=== PATIENT | female | born 1935 | race Caucasian/White ===

== ENCOUNTER 2017-06-18 09:47 | Inpatient (IN) | payer MEDICARE ==
[~2017-06-18] VITALS: Ht 170.2 cm; Wt 86.3 kg
[2017-06-18 09:50] VITALS: BP 226/97; PULSE 80; RESP 16; TEMP 97.7; O2SAT 99
[2017-06-18] MEDS ORDERED: LISI40TA PO (10:00)
[2017-06-18] MEDS ORDERED: ASPI-183 PO (10:00)
[2017-06-18 10:43] LABS: AUTOMATED NEUTROPHIL # 3.6 TH/MM3 (1.8-7.7); BASOPHIL # 0.1 TH/MM3 (0-0.2); EOSINOPHIL # 0.1 TH/MM3 (0-0.4); EOSINOPHIL % 1.3 % (0.0-4.0); HEMATOCRIT 24.8 % (35.0-46.0); LYMPH % 17.3 % (9.0-44.0); LYMPHOCYTE # 0.9 TH/MM3 (1.0-4.8); MEAN CELL VOLUME 76.7 FL (80.0-100.0); MEAN CORPUSCULAR HEMOGLOBIN 24.6 PG (27.0-34.0); MEAN CORPUSCULAR HGB CONC 32.1 % (32.0-36.0); MEAN PLATELET VOLUME 9.6 FL (7.0-11.0); MONO % 9.5 % (0.0-8.0); MONOCYTE # 0.5 TH/MM3 (0-0.9); NEUT % 70.9 % (16.0-70.0); PLATELET COUNT 207 TH/MM3 (150-450); RED BLOOD COUNT 3.24 MIL/MM3 (4.00-5.30); RED CELL DISTRIBUTION WIDTH 15.7 % (11.6-17.2); WHITE BLOOD COUNT 5.2 TH/MM3 (4.0-11.0)
[2017-06-18 10:54] LABS: CHLORIDE 109 MEQ/L (98-107); SODIUM (NA) 141 MEQ/L (136-145)
[2017-06-18 10:58] LABS: CALCIUM 8.1 MG/DL (8.5-10.1)
[2017-06-18 10:59] LABS: ALBUMIN 3.1 GM/DL (3.4-5.0); BICARBONATE 26.5 MEQ/L (21.0-32.0); BLOOD UREA NITROGEN 15 MG/DL (7-18); GLUCOSE,RANDOM 87 MG/DL (74-106)
[2017-06-18 11:02] LABS: ALT (GPT) 10 U/L (10-53); AST (GOT) 9 U/L (15-37); CREATININE 0.66 MG/DL (0.50-1.00); GLOMERULAR FILTRATION RATE 86 ML/MIN (>89)
[2017-06-18 11:03] LABS: TOTAL BILIRUBIN ADULT 0.5 MG/DL (0.2-1.0); TOTAL PROTEIN 6.4 GM/DL (6.4-8.2)
[2017-06-18 11:05] LABS: ALKALINE PHOSPHATASE 55 U/L (45-117)
[2017-06-18 11:13] LABS: BILIRUBIN, URINE NEG (NEG); BLOOD, URINE TRACE (NEG); GLUCOSE,URINE NEG (NEG); KETONE, URINE NEG (NEG); NITRITE,URINE NEG (NEG); URINE COLOR YELLOW (YELLW/STRAW); URINE LEUKOCYTE ESTERASE LARGE (NEG)
[2017-06-18 11:26] LABS: BACTERIA, URINE MANY /hpf; SQUAMOUS EPITHELIAL CELL URINE 0-5 /hpf (0-5); WBC, URINE 100-200 /hpf (0-5); WHITE BLOOD CELL CLUMPS MOD
--- NOTE | 2017-06-18 11:34 | PD ---
HPI Chief Complaint: General Weakness Time Seen by Provider: 10:39 Travel History International Travel<30 days: No Contact w/Intl Traveler<30days: No Traveled to known affect area: No History of Present Illness HPI This 81-year-old female was told to come here by her private physician because of anemia. She is not aware of any history of anemia. She went for blood work last and was called last night that she should the hospital she does have chronic shortness of breath with exertion. She has not noted any blood in her stool. She is on blood pressure meds, cholesterol meds and aspirin. She does have a stent in her heart. She is aware that she has a heart murmur PFS Past Medical History Hx Anticoagulant Therapy: Yes (325 ECOTRIN DAILY) Cardiovascular Problems: Yes (HTN, CHOL, STENT) Diabetes: No Hypertension: Yes ?: Not Past Surgical History Coronary Stent: Yes Hysterectomy: Yes Tonsillectomy: Yes Social History Alcohol Use: No Tobacco Use: No Substance Use: No Allergies-Medications (Allergen,Severity, Reaction): Coded Allergies: No Known Allergies (Unverified , 06/18/17) Reported Meds & Prescriptions Reported Meds & Active Scripts Active Reported Lisinopril 40 Mg Tab 40 Mg PO DAILY Aspirin 325 Mg Tab 325 Mg PO DAILY Review of Systems General / Constitutional: No: Fever, Chills Eyes: No: Diploplia, Blurred Vision HENT: Positive: Lightheadedness, No: Headaches, Vertigo Cardiovascular: No: Chest Pain or Discomfort, Palpitations Respiratory: Positive: Shortness of Breath, No: Cough Gastrointestinal: No: Nausea, Vomiting Genitourinary: No: Urgency Musculoskeletal: No: Myalgias, Arthralgias Skin: No Rash, No Itching Neurologic: No: Weakness Hematologic/Lymphatic: No: Easy Bruising Physical Exam Narrative GENERAL: Well-developed female SKIN: Focused skin assessment warm/dry. HEAD: Atraumatic. Normocephalic. EYES: Pupils equal and round. No scleral icterus. No injection or drainage. ENT: No nasal bleeding or discharge. Mucous membranes pink and moist. NECK: Trachea midline. No JVD. CARDIOVASCULAR: Regular rate and rhythm. Fairly loud systolic murmur RESPIRATORY: No accessory muscle use. Clear to auscultation. Breath sounds equal bilaterally. GASTROINTESTINAL: Abdomen soft, non-tender, nondistended. Hepatic and splenic margins not palpable. Rectal exam no masses are felt. Stool is brown and guaiac positive MUSCULOSKELETAL: No obvious deformities. No clubbing. No cyanosis. No edema. NEUROLOGICAL: Awake and alert. No obvious cranial nerve deficits. Motor grossly within normal limits. Normal speech. PSYCHIATRIC: Appropriate mood and affect; insight and judgment normal. Data Data Last Documented VS Vital Signs Date Time Temp Pulse Resp B/P (MAP) Pulse Ox O2 Delivery O2 Flow Rate FiO2 06/18/17 09:50 97.7 80 16 226/97 (140) 99 Orders Orders Electrocardiogram (06/18/17 10:14) Complete Blood Count With Diff (06/18/17 10:14) Comprehensive Metabolic Panel (06/18/17 10:14) Iv Access Insert/Monitor (06/18/17 10:14) Urinalysis - C+S If Indicated (06/18/17 10:14) Chest, Single Ap (06/18/17 11:23) Urine Culture (06/18/17 11:07) Labs Laboratory Tests Test 06/18/17 10:20 06/18/17 11:07 White Blood Count 5.2 TH/MM3 Red Blood Count 3.24 MIL/MM3 Hemoglobin 8.0 GM/DL Hematocrit 24.8 % Mean Corpuscular Volume 76.7 FL Mean Corpuscular Hemoglobin 24.6 PG Mean Corpuscular Hemoglobin Concent 32.1 % Red Cell Distribution Width 15.7 % Platelet Count 207 TH/MM3 Mean Platelet Volume 9.6 FL Neutrophils (%) (Auto) 70.9 % Lymphocytes (%) (Auto) 17.3 % Monocytes (%) (Auto) 9.5 % Eosinophils (%) (Auto) 1.3 % Basophils (%) (Auto) 1.0 % Neutrophils # (Auto) 3.6 TH/MM3 Lymphocytes # (Auto) 0.9 TH/MM3 Monocytes # (Auto) 0.5 TH/MM3 Eosinophils # (Auto) 0.1 TH/MM3 Basophils # (Auto) 0.1 TH/MM3 CBC Comment DIFF FINAL Differential Comment Blood Urea Nitrogen 15 MG/DL Creatinine 0.66 MG/DL Random Glucose 87 MG/DL Total Protein 6.4 GM/DL Albumin 3.1 GM/DL Calcium Level 8.1 MG/DL Alkaline Phosphatase 55 U/L Aspartate Amino Transf (AST/SGOT) 9 U/L Alanine Aminotransferase (ALT/SGPT) 10 U/L Total Bilirubin 0.5 MG/DL Sodium Level 141 MEQ/L Potassium Level 3.9 MEQ/L Chloride Level 109 MEQ/L Carbon Dioxide Level 26.5 MEQ/L Anion Gap 6 MEQ/L Estimat Glomerular Filtration Rate 86 ML/MIN Urine Collection Type CLEAN CATCH Urine Color YELLOW Urine Turbidity SL CLOUDY Urine pH 6.0 Urine Specific [place] 1.010 Urine Protein NEG mg/dL Urine Glucose (UA) NEG mg/dL Urine Ketones NEG mg/dL Urine Occult Blood TRACE Urine Nitrite NEG Urine Bilirubin NEG Urine Urobilinogen 0.2 MG/DL Urine Leukocyte Esterase LARGE Urine RBC 4-9 /hpf Urine WBC 100-200 /hpf Urine WBC Clumps MOD Urine Squamous Epithelial Cells 0-5 /hpf Urine Bacteria MANY /hpf Microscopic Urinalysis Comment CULTURE INDICATED Urine Collection Time 11:07 [facility] Medical Decision Making Medical Screen Exam Complete: Yes Emergency Medical Condition: Yes Medical Record Reviewed: Yes Differential Diagnosis Differential includes anemia, CHF, generalized weakness Narrative Course Hemoglobin is 8. Her MCV is 76. Her stool is positive for occult blood. Urinalysis does show 102 100 white cells consistent Diagnosis Primary Impression: Blood loss anemia Additional Impression: UTI (urinary tract infection) Dc Jarrett MD Jun 18, 2017 11:34
--- NOTE | 2017-06-18 11:49 | RADRPT ---
EXAM DATE/TIME: 06/18/2017 11:31 [place] COMPARISON: No previous studies available for comparison. INDICATIONS : Anemia, weak, dizzy, short of breath. MEDICAL HISTORY : Hypertension. Hypercholesterolemia. SURGICAL HISTORY : Tonsillectomy. Hysterectomy. Cardiac stent. ENCOUNTER: Initial ACUITY: 1 week PAIN SCORE: 0/10 LOCATION: chest FINDINGS: A single view of the chest demonstrates the lungs to be symmetrically aerated without evidence of mas s, infiltrate or effusion. Mild compensated cardiomegaly prominent pulmonary vessels.. Osseous stru ctures are intact. CONCLUSION: Mild compensated cardiomegaly Geo Almendarez MD FACR on June 18, 2017 at 11:46 Board Certified Radiologist. This report was verified electronically.
[2017-06-18 12:16] VITALS: BP 171/85; PULSE 89; O2SAT 99
[2017-06-18 14:45] VITALS: BP 158/80; PULSE 70; RESP 16; TEMP 97.7; O2SAT 99
--- NOTE | 2017-06-18 15:24 | HHI.HP ---
[facility] Service [facility] Primary Care Physician Non-Staff Admission Diagnosis ANEMIA Diagnoses: Chief Complaint: Anemia Travel History International Travel<30 Days: No Contact w/Intl Traveler <30 Da: No Traveled to Known Affected Are: No History of Present Illness 81-year-old white female being admitted for suspected GI bleed. Patient was in her usual state of health and was referred to proceed to the emergency department after being contacted by her primary care's office yesterday after being reported that she had severe anemia. Patient decided to stay the night at home and thus came to the emergency department this morning. She denies having any new onset symptoms in the last few days. She does report having nonspecific poor endurance and fatigue and paleness. Denies any melena or bright red blood per rectum. Denies any abdominal pain nausea vomiting or diarrhea. Patient reports having colonoscopy anywhere from 6-10 years ago in the state [facility]. Patient lives with her daughter. Denies smoking or drinking. Family history significant for hypertension. Patient's past medical history significant for coronary artery disease with stenting and cholecystectomy. In the emergency room the patient was noted to have hemoglobin of 8.0. She also was found to have a suspicious urinalysis that was clean catch. Review of Systems Except as stated in HPI: all other systems reviewed are Neg Past Family Social History Allergies: Coded Allergies: No Known Allergies (Unverified , 06/18/17) Physical Exam Vital Signs Vital Signs Date Time Temp Pulse Resp B/P (MAP) Pulse Ox O2 Delivery O2 Flow Rate FiO2 06/18/17 14:45 97.7 70 16 158/80 (106) 99 06/18/17 12:57 06/18/17 12:16 89 171/85 (113) 99 06/18/17 09:50 97.7 80 16 226/97 (140) 99 Physical Exam VS: afebrile GENERAL: Well-nourished elderly female, appears pale SKIN: Warm and dry. EYES: No scleral icterus. No injection or drainage. ENT: No nasal bleeding or discharge. Mucous membranes pink and moist. CARDIOVASCULAR: Regular rate and rhythm. no murmurs RESPIRATORY: No accessory muscle use. Clear to auscultation. Breath sounds equal bilaterally. GASTROINTESTINAL: Abdomen soft, non-tender, nondistended. Extremities: No clubbing, cyanosis, or edema. No obvious deformities. MUSCULOSKELETAL: adequate muscle bulk and tone for age and habitus NEUROLOGICAL: Awake and alert. No obvious cranial nerve deficits. No facial droop nor slurred speech noted. PSYCHIATRIC: Appropriate mood and affect; insight and judgment normal. Laboratory Laboratory Tests Test 06/18/17 10:20 06/18/17 11:07 White Blood Count 5.2 Red Blood Count 3.24 Hemoglobin 8.0 Hematocrit 24.8 Mean Corpuscular Volume 76.7 Mean Corpuscular Hemoglobin 24.6 Mean Corpuscular Hemoglobin Concent 32.1 Red Cell Distribution Width 15.7 Platelet Count 207 Mean Platelet Volume 9.6 Neutrophils (%) (Auto) 70.9 Lymphocytes (%) (Auto) 17.3 Monocytes (%) (Auto) 9.5 Eosinophils (%) (Auto) 1.3 Basophils (%) (Auto) 1.0 Neutrophils # (Auto) 3.6 Lymphocytes # (Auto) 0.9 Monocytes # (Auto) 0.5 Eosinophils # (Auto) 0.1 Basophils # (Auto) 0.1 CBC Comment DIFF FINAL Differential Comment Blood Urea Nitrogen 15 Creatinine 0.66 Random Glucose 87 Total Protein 6.4 Albumin 3.1 Calcium Level 8.1 Alkaline Phosphatase 55 Aspartate Amino Transf (AST/SGOT) 9 Alanine Aminotransferase (ALT/SGPT) 10 Total Bilirubin 0.5 Sodium Level 141 Potassium Level 3.9 Chloride Level 109 Carbon Dioxide Level 26.5 Anion Gap 6 Estimat Glomerular Filtration Rate 86 Urine Collection Type CLEAN CATCH Urine Color YELLOW Urine Turbidity SL CLOUDY Urine pH 6.0 Urine Specific [place] 1.010 Urine Protein NEG Urine Glucose (UA) NEG Urine Ketones NEG Urine Occult Blood TRACE Urine Nitrite NEG Urine Bilirubin NEG Urine Urobilinogen 0.2 Urine Leukocyte Esterase LARGE Urine RBC 4-9 Urine WBC 100-200 Urine WBC Clumps MOD Urine Squamous Epithelial Cells 0-5 Urine Bacteria MANY Microscopic Urinalysis Comment CULTURE INDICATED Urine Collection Time 11:07 Date/Time Source Procedure Growth Status 06/18/17 11:07 Urine Clean Catch Urine Culture Pending Received Result Diagram: 06/18/17 1020 06/18/17 1020 Imaging Last Impressions Chest X-Ray 06/18/17 1123 Signed Impressions: Service Date/Time: Sunday, June 18, 2017 11:31 - CONCLUSION: Mild compensated cardiomegaly Geo Almendarez MD FACR [place]adyi VTE Risk Assessment Caprini VTE Risk Assessment: Mod/High Risk (score >= 2) Caprini Risk Assessment Model Point Value = 1 Point Value = 2 Point Value = 3 Point Value = 5 Age 41-60 Minor surgery BMI > 25 kg/m2 Swollen legs Varicose veins or History of unexplained or recurrent spontaneous Oral contraceptives or hormone replacement Sepsis (< 1 month) Serious lung disease, including pneumonia (< 1 month) Abnormal pulmonary function Acute myocardial infarction Congestive heart failure (< 1 month) History of inflammatory bowel disease Medical patient at bed rest Age 61-74 Arthroscopic surgery Major open surgery (> 45 min) Laparoscopic surgery (> 45 min) Malignancy Confined to bed (> 72 hours) Immobilizing plaster cast Central venous access Age >= 75 History of VTE Family history of VTE Factor V Leiden Prothrombin [id number] Lupus anticoagulant Anticardiolipin antibodies Elevated serum homocysteine Heparin-induced thrombocytopenia Other congenital or acquired thrombophilia Stroke (< 1 month) Elective arthroplasty Hip, pelvis, or leg fracture Acute spinal cord injury (< 1 month) Prophylaxis Regimen Total Risk Factor Score Risk Level Prophylaxis Regimen 0-1 Low Early ambulation 2 Moderate Order ONE of the following: *Sequential Compression Device (SCD) *Heparin 5000 units SQ BID 3-4 Higher Order ONE of the following medications: *Heparin 5000 units SQ TID *Enoxaparin/Lovenox 40 mg SQ daily (WT < 150 kg, CrCl > 30 mL/min) *Enoxaparin/Lovenox 30 mg SQ daily (WT < 150 kg, CrCl > 10-29 mL/min) *Enoxaparin/Lovenox 30 mg SQ BID (WT < 150 kg, CrCl > 30 mL/min) AND/OR *Sequential Compression Device (SCD) 5 or more Highest Order ONE of the following medications: *Heparin 5000 units SQ TID (Preferred with Epidurals) *Enoxaparin/Lovenox 40 mg SQ daily (WT < 150 kg, CrCl > 30 mL/min) *Enoxaparin/Lovenox 30 mg SQ daily (WT < 150 kg, CrCl > 10-29 mL/min) *Enoxaparin/Lovenox 30 mg SQ BID (WT < 150 kg, CrCl > 30 mL/min) AND *Sequential Compression Device (SCD) Assessment and Plan Problem List: (1) Blood loss anemia ICD Code: D50.0 - Iron deficiency anemia secondary to blood loss (chronic) Status: Acute Assessment and Plan 81-year-old white female admitted for suspected GI bleed Suspected GI bleed - starting po protonix with no gross evidence of rapid bleeding -discussed case with emergency room physician to transfuse at least 1-2 units of blood, consulting gastroenterology, will make patient n.p.o. after midnight given that she has Hemoccult positive - CBC post transfusion Anemia -Likely acute on chronic iron deficiency anemia -f/u anemia profile CAD - hold home aspirin HTN - resume home lisinopril SCDs instead of heparin in light of suspected GI bleed Luis Antonio Snider MD Jun 18, 2017 15:24
[2017-06-18] MEDS ORDERED: PANTOPRAZOLE SOD 40 MG DELAYED RELEASE TAB PO ONE (15:30)
[2017-06-18 16:00] VITALS: BP 149/82; PULSE 72; RESP 18; TEMP 97.9; O2SAT 98
[2017-06-18 16:58] LABS: % SATURATION IRON PROFILE 3.8 % (20-50); IRON (FE) 14 MCG/DL (50-170); TOTAL IRON BINDING CAPACITY 370 MCG/DL (250-450)
--- NOTE | 2017-06-18 17:03 | EKG ---
Date Performed: 06/18/2017 Time Performed: 10:20:59 PTAGE: 81 years EKG: Sinus rhythm BORDERLINE ECG NO PREVIOUS TRACING DOCTOR: Clayton Marcus Interpretating Date/Time 06/18/2017 17:03:13
[2017-06-18 17:23] LABS: FOLATE 16.4 NG/ML (3.1-17.5)
[2017-06-18] MEDS ORDERED: PEG (High)/E-LYTE SOLN 4000 ML BTL PO ONE (17:45)
--- NOTE | 2017-06-18 18:24 | MB ---
cc: Keyla Plummer MD DATE: 06/18/2017 REFERRING PHYSICIAN: Luis Antonoi Snider MD REASON FOR CONSULTATION: Anemia, questionable GI bleed. HISTORY OF PRESENT ILLNESS: Ms. Wan is a very pleasant 81-year-old lady who has no major medical problems, relocated recently to the area. She went to see her new primary care doctor and he ordered baseline blood work. She was found to have severe anemia. She was sent to the emergency room for further evaluation and treatment. The patient denies any history of melena, hematemesis, hematochezia, stated she had blood work in [place] more than a year ago and was normal -according to the patient. Denies taking any iron supplementation or having blood transfusions in the past. She does take Aleve twice a day in addition to Ecotrin prescribed by her cycle director. She denies any weight loss, melena, hematemesis, hematochezia, epistaxis or bleeding from any other areas. Her appetite is good. PAST MEDICAL HISTORY: She has coronary artery disease, status post stent placement 6 years ago. She has high cholesterol, hypertension. PAST SURGICAL HISTORY: Hysterectomy, cholecystectomy, stent placement. Did have a colonoscopy many years ago, not significant. ALLERGIES: NO KNOWN ALLERGIES. SOCIAL HISTORY: Denies smoking, drinking or drug use. FAMILY HISTORY: No family history of colon cancer or any other GI pathology. MEDICATIONS: The patient is taking at home aspirin 325 and lisinopril. In the hospital, she was started on Protonix. REVIEW OF SYSTEMS: CONSTITUTIONAL: She denies any fever or chills, weight loss or weight gain. ENT: No alteration of baseline hearing or visual activity. PULMONARY: Denies any chest pain, shortness of breath. GASTROINTESTINAL: As above. GENITOURINARY: Denies dysuria, hematuria. HEMATOLOGIC: No history of anemia or bleeding disorder. SKIN: No alteration in baseline skin lesion. NEUROLOGIC: No history of TIA or CVA kind of symptoms. PHYSICAL EXAMINATION: GENERAL: She is sitting comfortable in bed, in no acute distress, pale. VITAL SIGNS: Temperature 97.7, heart rate 70, respirations 16, blood pressure 158/80, saturation 99. HEENT: PERRLA, pale. NECK: No JVD. No lymphadenopathy. CHEST: Clear to auscultation and palpation. CARDIOVASCULAR: S1, S2. No murmur. ABDOMEN: Soft, obese. Bowel sounds are present. CENTRAL NERVOUS SYSTEM: Awake, alert, oriented x 3. No focal signs identified. LABORATORY DATA: Her white count is 5.2, hemoglobin 8, MCV 77, platelets 207. Her chemistry is essentially normal except iron saturation is 3.8. Vitamin B12 is also 154. Albumin is 3.1, otherwise normal. STUDIES: No abdominal imaging. She had a chest x-ray, which showed mild compensated cardiomegaly. IMPRESSION: Ms. Wan is a very pleasant 81-year-old lady found to have profound anemia, referred for further evaluation and treatment. No indication of active bleed at this time. Vitamin B12 deficiency, will need supplementation. Iron deficiency anemia, needs further evaluation from GI point of view. History of nonsteroidal anti-inflammatory drugs use, possible contributory to her current lab values. RECOMMENDATIONS: Upper endoscopy and colonoscopy was discussed with the patient. If she is willing to get discharged and having as an outpatient, will be more than happy to schedule it for her. If she decides to stay in the hospital, we can schedule upper endoscopy and colonoscopy in the morning. Suggest iron and vitamin B12 supplementation as per primary. Celiac panel. I would like to thank Dr. Snider for referring her to our office for consultation. Risks and benefits were discussed with the patient in detail. Keyla Plummer MD BSB/SB , 05:47 PM , 06:23 PM [facility]ITALMildred
[2017-06-18 20:00] VITALS: BP 176/78; PULSE 78; RESP 20; TEMP 96; O2SAT 97
[2017-06-19] VITALS (13 sets, daily range): BP systolic 116–157; BP diastolic 56–85; PULSE 60–78; RESP 16–20; TEMP 96.5–98.3; O2SAT 96–99
[2017-06-19] MEDS ORDERED: SODIUM CHLOR 0.9% 250 ML INJ 250 ML IV ONE (08:30)
[2017-06-19] MEDS ORDERED: FUROSEMIDE 20 MG/2 ML VIAL IV PUSH ONE ×2 (08:30→17:00)
[2017-06-19] MEDS ORDERED: PANTOPRAZOLE SOD 40 MG DELAYED RELEASE TAB PO SCH (09:00)
[2017-06-19] MEDS ORDERED: LIDOCAINE HCL 1% PF 5 ML SYRINGE OTHER ONE (12:00)
[2017-06-19] MEDS ORDERED: PROPOFOL 200 MG/20 ML AMP IV ONE ×2 (12:00)
--- NOTE | 2017-06-19 12:12 | HHI.PR ---
Subjective Remarks Nursing denies any deterioration since last night. Patient herself has no new complaints from last night, no reports of any nausea vomiting diarrhea or bloody stool. Objective Vital Signs Date Time Temp Pulse Resp B/P (MAP) Pulse Ox O2 Delivery O2 Flow Rate FiO2 06/19/17 11:20 97.7 64 16 125/65 98 06/19/17 11:05 97.6 72 16 130/79 98 06/19/17 07:50 98.2 72 20 134/56 (82) 96 06/19/17 04:00 97.3 78 20 116/56 (76) 96 06/19/17 00:00 96.5 69 20 148/68 (94) 98 06/18/17 20:00 96.0 78 20 176/78 (110) 97 06/18/17 16:00 97.9 72 18 149/82 (104) 98 06/18/17 14:45 97.7 70 16 158/80 (106) 99 06/18/17 12:57 06/18/17 12:16 89 171/85 (113) 99 I/O 06/18/17 06/18/17 06/18/17 06/19/17 06/19/17 06/19/17 06:59 14:59 22:59 06:59 14:59 22:59 Intake Total 1800 ml Balance 1800 ml Intake Oral 1800 ml # Voids 6 # Bowel Movements 9 Result Diagram: 06/19/17 1030 06/18/17 1020 Objective Remarks Abdomen soft, nontender, nondistended, pale-appearing elderly female A/P Assessment and Plan 81-year-old white female admitted for suspected GI bleed Suspected GI bleed - po protonix with no gross evidence of rapid bleeding -Awaiting blood to be transfused - CBC this AM stable. colonoscopy anticipated today. Iron deficiency anemia -Manage as above CAD - hold home aspirin HTN - home lisinopril SCDs instead of heparin in light of suspected GI bleed Addendum: egd colonoscopy showing no signs of active bleeding. mild gastritis on egd. tolerated po intake well and h/h held steady. Pt has met maximal benefit from hospitalization and was instructed to have her blood work repeated at PCP's office in 1 week. Luis Antonio Snider MD Jun 19, 2017 12:12
[2017-06-19 13:17] LABS: BILIRUBIN, URINE NEG (NEG); BLOOD, URINE NEG (NEG); GLUCOSE,URINE NEG (NEG); KETONE, URINE TRACE mg/dL (NEG); NITRITE,URINE NEG (NEG); URINE COLOR YELLOW (YELLW/STRAW); URINE LEUKOCYTE ESTERASE NEG (NEG)
[2017-06-19 13:23] LABS: SQUAMOUS EPITHELIAL CELL URINE 0-5 /hpf (0-5); WBC, URINE 0-2 /hpf (0-5)
[2017-06-19] MEDS ORDERED: LACTATED RINGER'S 1000 ML INJ 1,000 ML ONE (14:01)
--- NOTE | 2017-06-19 14:33 | GIPROC ---
[address], [address] COLONOSCOPY PROCEDURE REPORT EXAM DATE: 06/19/2017 PATIENT NAME: Shira Wan MR #: [id number] BIRTHDATE: 1935 ENDOSCOPIST: Keyla Plummer MD ORDER #: [id number] MANAGER INTEGRATION: STATUS: inpatient INDICATIONS: The patient is a 81 yr old female here for a colonoscopy due to ANEMIA PROCEDURE PERFORMED: Colonoscopy, diagnostic MEDICATIONS: None and Per Anesthesia. PREP QUALITY: fair PREP TYPE:Other: ESTIMATED BLOOD LOSS: None CONSENT: The patient understands the risks and benefits of the procedure and understands that these risks include, but are not limited to: sedation, allergic reaction, infection, perforation and/or bleeding. Alternative means of evaluation and treatment include, among others: physical exam, x-rays, and/or surgical intervention. The patient elects to proceed with this endoscopic procedure. medical equipment was checked for proper function. Hand hygiene and appropriate measures for infection prevention was taken. After the risks, benefits and alternatives of the procedure were thoroughly explained, Informed consent was verified, confirmed and timeout was successfully executed by the treatment team. A digital exam revealed external hemorrhoids The endoscope was introduced through the anus and advanced to the cecum, which was identified by both the appendix and ileocecal valve. The instrument was then slowly withdrawn as the colon was fully examined. COLON FINDINGS: DIVERTICULOSIS SIGMOID,DESCENDING STOOL RIGHT COLON. Retroflexed views revealed internal hemorrhoids and Retroflexed views revealed small internal hemorrhoids The scope was then completely withdrawn from the patient and the procedure terminated. PROCEDURE WITHDRAWAL TIME:6minutes ADVERSE EVENTS: There were no complications. IMPRESSIONS: 1. DIVERTICULOSIS SIGMOID,DESCENDING STOOL RIGHT COLON 2. Retroflexed views revealed internal hemorrhoids 3. Retroflexed views revealed small internal hemorrhoids 4. Revealed external hemorrhoids RECOMMENDATIONS: 1. Benefiber 2 tsp daily 2. High fiber diet 3. Probiotics from any [facility] or health food store 4. Yearly rectal exams 5. Ok to mo home from [facility] eval capsule endo op RECALL: Return 1 year Colonoscopy Keyla Plummer MD eSigned: Keyla Plummer MD 06/19/2017 2:33 PM cc:
--- NOTE | 2017-06-19 14:35 | GIPROC ---
[facility] [address] [place] [address], [id number] EGD PROCEDURE REPORT EXAM DATE: 06/19/2017 PATIENT NAME: Shira Wan MR #: [id number] BIRTHDATE: 1935 ATTENDING: Keyla Plummer MD ORDER #: [id number] ORAL AND MAXILLOFACIAL SURGEON: Carlton Perez STATUS: inpatient INDICATIONS: The patient is a 81 yr old female here for an EGD due to anemia PROCEDURE PERFORMED: EGD w/ biopsy MEDICATIONS: None and Per Anesthesia. TOPICAL ANESTHETIC: CONSENT: The patient understands the risks and benefits of the procedure and understands that these risks include, but are not limited to: sedation, allergic reaction, infection, perforation and/or bleeding. Alternative means of evaluation and treatment include, among others: physical exam, x-rays, and/or surgical intervention. The patient elects to proceed with this endoscopic procedure. medical equipment was checked for proper function. Hand hygiene and appropriate measures for infection prevention was taken. After the risks, benefits and alternatives of the procedure were thoroughly explained, Informed consent was verified, confirmed and timeout was successfully executed by the treatment team. The patient was anesthetized with topical anesthesia and the EC-[id number] (Pedi C) endoscope was introduced through the mouth and advanced to the second portion of the duodenum. Retroflexed views revealed a hiatal hernia The gastroscope was then slowly withdrawn and removed. Gastritis antrum-biopsy duodenum normal-biopsy. ADVERSE EVENTS: There were no complications. IMPRESSIONS: 1. Gastritis antrum-biopsy duodenum normal-biopsy 2. Retroflexed views revealed a hiatal hernia RECOMMENDATIONS: 1. Await biopsy results. Biopsy results will not be ready for 7-10 days. If you don't hear from us in two weeks, call our office for biopsy results. 2. Anti-reflux regimen 3. Continue PPI PATIENT CONDITION: stable DISPOSITION: Inpatient REPEAT EXAM: Return 3 years EGD Keyla Plummer MD eSigned: Keyla Plummer MD 06/19/2017 2:35 PM cc: PATIENT NAME: Shira Wan MR#: [id number]
[2017-06-19] MEDS ORDERED: ASPI81TA23 PO (14:48)
--- NOTE | 2017-06-19 14:49 | HHI.DCPOC ---
Discharge Care Plan Diagnosis: (1) Diverticulosis of colon (2) Blood loss anemia Goals to Promote Your Health * To prevent worsening of your condition and complications * To maintain your health at the optimal level Directions to Meet Your Goals Take your medications as prescribed Follow your dietary instruction Follow activity as directed Keep your appointments as scheduled Take your immunizations and boosters as scheduled If your symptoms worsen call your PCP, if no PCP go to Urgent Care Center or Emergency Room Smoking is Dangerous to Your Health. Avoid second hand smoke Call the 24-hour hour crisis hotline for domestic abuse at Luis Antonio Snider MD Jun 19, 2017 14:49
[2017-06-19] MEDS ORDERED: PANT40TA3 PO (14:51)
[2017-06-19] MEDS ORDERED: DO NOT ADM ANY ANTICOAGULANT DRUGS PRN (15:15)
[2017-06-22 03:51] LABS: ENDOMYSIAL AB SCREEN ND (NEGATIVE); ENDOMYSIAL AB TITER ND (<1:5)
== END 2017-06-19 21:33 | disposition home or self-care (01) | DRG 812 ==
LOC: PHED 09:47 → PHEDA 11:52 → PH3B 13:14
PROVIDERS: ADMIT Hospitalist; ATTEND Hospitalist
PROC: 0DB58ZX Excision of Esophagus, Via Natural or Artificial Opening Endoscopic, Diagnostic (ICD-10-PCS; 2017-06-19)
PROC: 0DJD8ZZ Inspection of Lower Intestinal Tract, Via Natural or Artificial Opening Endoscopic (ICD-10-PCS; 2017-06-19)
PROC: 30233N1 Transfusion of Nonautologous Red Blood Cells into Peripheral Vein, Percutaneous Approach (ICD-10-PCS; 2017-06-19)
PROC: 0DB98ZX Excision of Duodenum, Via Natural or Artificial Opening Endoscopic, Diagnostic (ICD-10-PCS; principal; 2017-06-19 14:01)
PROC: 0DB68ZX Excision of Stomach, Via Natural or Artificial Opening Endoscopic, Diagnostic (ICD-10-PCS; 2017-06-19 14:01)
DX: D50.0 Iron deficiency anemia secondary to blood loss (chronic) (principal); I10 Essential (primary) hypertension; K57.30 Diverticulosis of large intestine without perforation or abscess without bleeding; R01.1 Cardiac murmur, unspecified; I25.10 Atherosclerotic heart disease of native coronary artery without angina pectoris; Z95.5 Presence of coronary angioplasty implant and graft; E78.00 Pure hypercholesterolemia, unspecified; E66.9 Obesity, unspecified; Z68.29 Body mass index [BMI] 29.0-29.9, adult; E53.8 Deficiency of other specified B group vitamins; K44.9 Diaphragmatic hernia without obstruction or gangrene; K64.4 Residual hemorrhoidal skin tags; K64.8 Other hemorrhoids; R82.99 Other abnormal findings in urine
CPT/HCPCS: 36430; 71045; 80053; 81001; 82607; 82746; 82784; 83516; 83540; 83550; 85018; 85025; 86850; 86900; 86901; 86920; 88305; 88312; 93005; J1940; J7050; J7120; P9016

== ENCOUNTER 2017-08-08 16:30 | Observation (INO) | payer MEDICARE, OTHER ==
[~2017-08-08] VITALS: Ht 167.6 cm; Wt 80.0 kg
[~2017-08-08 16:30] MED LIST: ASPI81TA23 PO; LISI40TA PO; PANT40TA3 PO
[2017-08-08 16:50] VITALS: BP 142/72; PULSE 85; RESP 16; TEMP 98; O2SAT 98
[2017-08-08 18:08] LABS: AUTOMATED NEUTROPHIL # 3.8 TH/MM3 (1.8-7.7); BASOPHIL % 0.7 % (0.0-2.0); EOSINOPHIL % 0.6 % (0.0-4.0); HEMATOCRIT 36.7 % (35.0-46.0); LYMPH % 17.1 % (9.0-44.0); LYMPHOCYTE # 0.9 TH/MM3 (1.0-4.8); MEAN CELL VOLUME 81.2 FL (80.0-100.0); MEAN CORPUSCULAR HEMOGLOBIN 26.5 PG (27.0-34.0); MEAN CORPUSCULAR HGB CONC 32.6 % (32.0-36.0); MEAN PLATELET VOLUME 10.7 FL (7.0-11.0); MONO % 9.2 % (0.0-8.0); MONOCYTE # 0.5 TH/MM3 (0-0.9); NEUT % 72.4 % (16.0-70.0); PLATELET COUNT 142 TH/MM3 (150-450); RED BLOOD COUNT 4.52 MIL/MM3 (4.00-5.30); RED CELL DISTRIBUTION WIDTH 23.6 % (11.6-17.2); WHITE BLOOD COUNT 5.2 TH/MM3 (4.0-11.0)
[2017-08-08 18:11] LABS: BACTERIA, URINE FEW /hpf; BILIRUBIN, URINE NEG (NEG); BLOOD, URINE MOD (NEG); GLUCOSE,URINE NEG (NEG); KETONE, URINE TRACE mg/dL (NEG); MUCUS URINE FEW /lpf (OCC); NITRITE,URINE NEG (NEG); SQUAMOUS EPITHELIAL CELL URINE 2 /hpf (0-5); TRANSITIONAL EPI CELLS, URINE 2 /hpf; URINE COLOR YELLOW (YELLW/STRAW); URINE LEUKOCYTE ESTERASE LARGE (NEG)
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
[2017-08-08 18:32] LABS: ALBUMIN 3.5 GM/DL (3.4-5.0); ALT (GPT) 12 U/L (10-53); AST (GOT) 12 U/L (15-37); BICARBONATE 25.3 MEQ/L (21.0-32.0); CALCIUM 8.2 MG/DL (8.5-10.1); CHLORIDE 106 MEQ/L (98-107); CREATININE 0.89 MG/DL (0.50-1.00); GLOMERULAR FILTRATION RATE 61 ML/MIN (>89); GLUCOSE,RANDOM 105 MG/DL (74-106); SODIUM (NA) 141 MEQ/L (136-145)
[2017-08-08 18:42] LABS: ALKALINE PHOSPHATASE 52 U/L (45-117); BLOOD UREA NITROGEN 15 MG/DL (7-18); TOTAL BILIRUBIN ADULT 0.3 MG/DL (0.2-1.0)
[2017-08-08] MEDS ORDERED: cefTRIAXone INJ 1,000 MG in SODIUM CHLORIDE 0.9% INJ 100 ML IV ONE (19:15)
[2017-08-08] MEDS ORDERED: POTASSIUM CHLORIDE 10 MEQ CONTROLLED RELEASE TAB PO ONE (19:15)
[2017-08-08 19:23] VITALS: BP 177/82; PULSE 68; RESP 18; O2SAT 97
[2017-08-08] MEDS ORDERED: CEPH-460 PO (20:19)
[2017-08-09] MEDS ORDERED: ACETAMINOPHEN 325 MG TAB PO ONE ×2 (01:00→10:30)
[2017-08-09 08:10] VITALS: BP 194/87; PULSE 70; RESP 20; O2SAT 98
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
--- NOTE | 2017-08-09 12:51 | PD ---
Physical Exam Date Seen by Provider: Aug 09, 2017 Narrative This patient presented last night as a Bajwa Act. She was worked up medically and found to have a urinary tract infection. That was treated here with Rocephin. She was also given a prescription for Keflex. The patient has subsequently been evaluated by psychiatry. They have lifted her Bjawa Act. Data Data Last Documented VS Vital Signs Date Time Temp Pulse Resp B/P (MAP) Pulse Ox O2 Delivery O2 Flow Rate FiO2 08/09/17 08:10 70 20 194/87 (122) 98 Room Air 08/08/17 16:50 98.0 Orders Orders Complete Blood Count With Diff (08/08/17 17:28) Comprehensive Metabolic Panel (08/08/17 17:28) Thyroid Stimulating Hormone (08/08/17 17:28) Urinalysis - C+S If Indicated (08/08/17 17:28) Psych Screen (08/08/17 17:28) Drug Screen, Random Urine (08/08/17 17:28) Ct Brain W/O Iv Contrast(Rout) (08/08/17 ) Electrocardiogram (08/08/17 ) Urine Culture (08/08/17 17:51) Ceftriaxone Inj (Rocephin Inj) (08/08/17 19:15) Potassium Chloride (Kcl) (08/08/17 19:15) Acetaminophen (Tylenol) (08/09/17 01:00) Diet Regular Basic (08/09/17 Breakfast) Acetaminophen (Tylenol) (08/09/17 10:30) Ed Discharge Order (08/09/17 12:49) Labs Laboratory Tests Test 08/08/17 17:40 08/08/17 17:51 White Blood Count 5.2 TH/MM3 Red Blood Count 4.52 MIL/MM3 Hemoglobin 12.0 GM/DL Hematocrit 36.7 % Mean Corpuscular Volume 81.2 FL Mean Corpuscular Hemoglobin 26.5 PG Mean Corpuscular Hemoglobin Concent 32.6 % Red Cell Distribution Width 23.6 % Platelet Count 142 TH/MM3 Mean Platelet Volume 10.7 FL Neutrophils (%) (Auto) 72.4 % Lymphocytes (%) (Auto) 17.1 % Monocytes (%) (Auto) 9.2 % Eosinophils (%) (Auto) 0.6 % Basophils (%) (Auto) 0.7 % Neutrophils # (Auto) 3.8 TH/MM3 Lymphocytes # (Auto) 0.9 TH/MM3 Monocytes # (Auto) 0.5 TH/MM3 Eosinophils # (Auto) 0.0 TH/MM3 Basophils # (Auto) 0.0 TH/MM3 CBC Comment DIFF FINAL Differential Comment Blood Urea Nitrogen 15 MG/DL Creatinine 0.89 MG/DL Random Glucose 105 MG/DL Total Protein 7.0 GM/DL Albumin 3.5 GM/DL Calcium Level 8.2 MG/DL Alkaline Phosphatase 52 U/L Aspartate Amino Transf (AST/SGOT) 12 U/L Alanine Aminotransferase (ALT/SGPT) 12 U/L Total Bilirubin 0.3 MG/DL Sodium Level 141 MEQ/L Potassium Level 3.2 MEQ/L Chloride Level 106 MEQ/L Carbon Dioxide Level 25.3 MEQ/L Anion Gap 10 MEQ/L Estimat Glomerular Filtration Rate 61 ML/MIN Thyroid Stimulating Hormone 3rd Gen 2.010 uIU/ML Urine Color YELLOW Urine Turbidity HAZY Urine pH 6.0 Urine Specific [place] 1.024 Urine Protein TRACE mg/dL Urine Glucose (UA) NEG mg/dL Urine Ketones TRACE mg/dL Urine Occult Blood MOD Urine Nitrite NEG Urine Bilirubin NEG Urine Urobilinogen 2.0 MG/DL Urine Leukocyte Esterase LARGE Urine RBC 18 /hpf Urine WBC /hpf Urine Squamous Epithelial Cells 2 /hpf Urine Transitional Epithelial Cells 2 /hpf Urine Bacteria FEW /hpf Urine Mucus FEW /lpf Microscopic Urinalysis Comment CULTURE INDICATED Urine Opiates Screen NEG Urine Barbiturates Screen NEG Urine Amphetamines Screen NEG Urine Benzodiazepines Screen NEG Urine Cocaine Screen NEG Urine Cannabinoids Screen NEG MDM Supervised Visit with IGNACIO: No Diagnosis Primary Impression: UTI (urinary tract infection) Qualified Codes: N30.00 - Acute cystitis without hematuria Additional Impression: Adjustment disorder Qualified Codes: F43.24 - Adjustment disorder with disturbance of conduct Scripts Cephalexin (Keflex) 500 Mg Capsule 500 MG PO Q6H for Infection for 7 Days, #28 CAP 0 Refills Prov: Jessi Cox MD 08/08/17 Disposition: 01 DISCHARGE HOME Condition: Stable Geneva Gutierrez MD Aug 09, 2017 12:51
[2017-08-09] MEDS ORDERED: LISINOPRIL 20 MG TAB PO SCH (14:00)
[2017-08-09 14:49] VITALS: BP 190/93; PULSE 76; RESP 22; TEMP 99.7; O2SAT 97
[2017-08-09] MEDS: CEPHALEXIN MONOHYDRATE 500 MG CAP PO SCH ×2 (14:56→20:10)
[2017-08-09] MEDS ORDERED: ENALAPRILAT 1.25 MG/ML VIAL IV PUSH PRN (15:00)
[2017-08-09] MEDS ORDERED: ACETAMINOPHEN 325 MG TAB PO PRN (15:00)
[2017-08-09] MEDS ORDERED: LACTULOSE SYRUP 20 GM/30 ML CUP PO PRN (15:00)
[2017-08-09] MEDS ORDERED: NALOXONE HCL 0.4 MG/ML AMP IV PUSH PRN (15:00)
[2017-08-09] MEDS ORDERED: SODIUM CHLORIDE 0.9% FLUSH 10 ML FLUSH IV FLUSH PRN (15:00)
[2017-08-09] MEDS ORDERED: MAGNESIUM HYDROXIDE SUSP 30 ML CUP PO PRN (15:00)
[2017-08-09] MEDS ORDERED: SENNOSIDES 8.6 MG TAB PO PRN (15:00)
[2017-08-09] MEDS ORDERED: BISACODYL 10 MG SUPP RECTAL PRN (15:00)
[2017-08-09 17:01] VITALS: BP 201/93; PULSE 76; RESP 18; O2SAT 96
[2017-08-09] MEDS ORDERED: NITROGLYCERIN 0.4 MG SL 25 TABS/BTL SL PRN (17:30)
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
[2017-08-09] MEDS ORDERED: ONDANSETRON ODT 4 MG TAB PO PRN (17:45)
[2017-08-09] MEDS ORDERED: MORPHINE SULFATE 4 MG/ML INJ IV PRN (17:45)
[2017-08-09 17:51] VITALS: BP 171/81; PULSE 73; RESP 16; O2SAT 97
[2017-08-09] MEDS ORDERED: cloNIDine HCL 0.1 MG TAB PO PRN (18:00)
[2017-08-09] MEDS: ENOXAPARIN SODIUM 30 MG/0.3 ML SYRINGE SQ SCH (18:04)
[2017-08-09] MEDS: PANTOPRAZOLE SOD 40 MG DELAYED RELEASE TAB PO SCH (18:04)
[2017-08-09 19:36] VITALS: BP 170/74; PULSE 74; RESP 16; TEMP 98; O2SAT 97
[2017-08-09] MEDS: SODIUM CHLORIDE 0.9% FLUSH 10 ML FLUSH IV FLUSH SCH (20:10)
[2017-08-09] MEDS: DOCUSATE SODIUM 50 MG/SENNA 8.6 MG TAB PO SCH (20:11)
[2017-08-09] MEDS: traMADol HCL 50 MG TAB PO PRN (20:14)
[2017-08-09 20:55] LABS: TROPONIN I LESS THAN 0.02 NG/ML (0.02-0.05)
[2017-08-09 23:13] VITALS: BP 162/77; PULSE 75; RESP 16; TEMP 98.7; O2SAT 97
[2017-08-10 02:06] LABS: TROPONIN I LESS THAN 0.02 NG/ML (0.02-0.05)
[2017-08-10 04:03] VITALS: BP 140/69; PULSE 68; RESP 16; TEMP 98.1; O2SAT 97
[2017-08-10 05:48] LABS: AUTOMATED NEUTROPHIL # 4.3 TH/MM3 (1.8-7.7); BASOPHIL # 0.1 TH/MM3 (0-0.2); BASOPHIL % 0.7 % (0.0-2.0); EOSINOPHIL # 0.2 TH/MM3 (0-0.4); EOSINOPHIL % 2.2 % (0.0-4.0); HEMATOCRIT 38.3 % (35.0-46.0); HEMOGLOBIN 12.2 GM/DL (11.6-15.3); LYMPH % 31.3 % (9.0-44.0); LYMPHOCYTE # 2.4 TH/MM3 (1.0-4.8); MEAN CORPUSCULAR HEMOGLOBIN 26.2 PG (27.0-34.0); MEAN PLATELET VOLUME 10.8 FL (7.0-11.0); MONO % 9.4 % (0.0-8.0); MONOCYTE # 0.7 TH/MM3 (0-0.9); NEUT % 56.4 % (16.0-70.0); PLATELET COUNT 156 TH/MM3 (150-450); RED BLOOD COUNT 4.67 MIL/MM3 (4.00-5.30); RED CELL DISTRIBUTION WIDTH 23.9 % (11.6-17.2); WHITE BLOOD COUNT 7.7 TH/MM3 (4.0-11.0)
[2017-08-10] MEDS: traMADol HCL 50 MG TAB PO PRN ×2 (05:59→22:47)
[2017-08-10 06:12] LABS: BICARBONATE 26.2 MEQ/L (21.0-32.0); CALCIUM 9.2 MG/DL (8.5-10.1); CHOLESTEROL/ HDL RATIO 1.8 RATIO; CREATININE 0.91 MG/DL (0.50-1.00); HDL CHOLESTEROL 71.4 MG/DL (40.0-60.0); MAGNESIUM 2.2 MG/DL (1.5-2.5)
--- NOTE | 2017-08-10 08:56 | EKG ---
Date Performed: 08/08/2017 Time Performed: 17:41:34 PTAGE: 81 years EKG: Sinus rhythm BORDERLINE LEFT AXIS DEVIATION BORDERLINE ECG PREVIOUS TRACING : 06/18/2017 10.20 Since the previous tracing, no significant change noted DOCTOR: Damian Watts Interpretating Date/Time 08/10/2017 08:54:28
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
[2017-08-10] MEDS: PANTOPRAZOLE SOD 40 MG DELAYED RELEASE TAB PO SCH (09:46)
[2017-08-10] MEDS: ASPIRIN EC 81 MG TABEC PO SCH (09:46)
[2017-08-10] MEDS: LISINOPRIL 20 MG TAB PO SCH (09:46)
[2017-08-10] MEDS: DOCUSATE SODIUM 50 MG/SENNA 8.6 MG TAB PO SCH ×2 (09:46→20:21)
[2017-08-10] MEDS: CEPHALEXIN MONOHYDRATE 500 MG CAP PO SCH ×2 (09:46→20:21)
[2017-08-10] MEDS: SODIUM CHLORIDE 0.9% FLUSH 10 ML FLUSH IV FLUSH SCH ×2 (09:47→20:21)
[2017-08-10] MEDS: ENOXAPARIN SODIUM 30 MG/0.3 ML SYRINGE SQ SCH (17:15)
--- NOTE | 2017-08-10 17:53 | EKG ---
Date Performed: 08/09/2017 Time Performed: 17:58:25 PTAGE: 81 years EKG: Sinus rhythm BORDERLINE LEFT AXIS DEVIATION Since the previous tracing, no significant change noted NORMAL ECG PREVIOUS TRACING : 08/08/2017 17.41 DOCTOR: Damian Watts Interpretating Date/Time 08/10/2017 17:51:55
[2017-08-10 20:02] VITALS: BP 134/64; PULSE 77; RESP 16; TEMP 98.1; O2SAT 97
[2017-08-11] VITALS (8 sets, daily range): BP systolic 117–165; BP diastolic 56–76; PULSE 65–79; RESP 16–20; TEMP 95.5–98.5; O2SAT 95–98
[2017-08-11] MEDS: CEPHALEXIN MONOHYDRATE 500 MG CAP PO SCH ×2 (09:27→20:18)
[2017-08-11] MEDS: SODIUM CHLORIDE 0.9% FLUSH 10 ML FLUSH IV FLUSH SCH ×2 (09:27→20:19)
[2017-08-11] MEDS: ASPIRIN EC 81 MG TABEC PO SCH (09:27)
[2017-08-11] MEDS: PANTOPRAZOLE SOD 40 MG DELAYED RELEASE TAB PO SCH (09:28)
[2017-08-11] MEDS: DOCUSATE SODIUM 50 MG/SENNA 8.6 MG TAB PO SCH ×2 (09:28→20:18)
[2017-08-11] MEDS: LISINOPRIL 20 MG TAB PO SCH (09:28)
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
--- NOTE | 2017-08-11 13:49 | HHI.DCPOC ---
Discharge Care Plan Diagnosis: (1) UTI (urinary tract infection) (2) Hypertension Goals to Promote Your Health * To prevent worsening of your condition and complications * To maintain your health at the optimal level Directions to Meet Your Goals Take your medications as prescribed Follow your dietary instruction Follow activity as directed Keep your appointments as scheduled Take your immunizations and boosters as scheduled If your symptoms worsen call your PCP, if no PCP go to Urgent Care Center or Emergency Room Smoking is Dangerous to Your Health. Avoid second hand smoke Call the 24-hour hour crisis hotline for domestic abuse at Bee Walsh PA-C Aug 11, 2017 1:49 pm
--- NOTE | 2017-08-11 14:04 | HHI.FF ---
Face to Face Verification Diagnosis: (1) Hypertension (2) Decreased activities of daily living (ADL) Physical Therapy Order: Evaluate and Treat, Improve ambulation Home Health Nursing Order: Medical education Signs/symptoms of disease process Nursing assessment with vital signs Retail Department Reset Order: To Evaluate: Living conditions/environment, Support services Order: To Provide: Long range planning, Community services I have seen patient Shira Wan on 08/11/17. My clinical findings support the need for the requested home health care services because: Ltd mobility - disease progression Deconditioned w/ increased weakness Limited ability to care for self I certify that my clinical findings support that this patient is homebound because: Unsteady gait/balance Unsafe to leave home unassisted Unable to use public transportation Bee Walsh PA-C Aug 11, 2017 2:04 pm
[2017-08-11] MEDS: ENOXAPARIN SODIUM 30 MG/0.3 ML SYRINGE SQ SCH (16:56)
[2017-08-11] MEDS: traMADol HCL 50 MG TAB PO PRN (20:18)
[2017-08-12] VITALS (8 sets, daily range): BP systolic 113–138; BP diastolic 58–68; PULSE 60–87; RESP 17–20; TEMP 95.8–98.7; O2SAT 97–98
[2017-08-12] MEDS: ASPIRIN EC 81 MG TABEC PO SCH (09:37)
[2017-08-12] MEDS: traMADol HCL 50 MG TAB PO PRN ×2 (09:37→21:11)
[2017-08-12] MEDS: LISINOPRIL 20 MG TAB PO SCH (09:37)
[2017-08-12] MEDS: SODIUM CHLORIDE 0.9% FLUSH 10 ML FLUSH IV FLUSH SCH ×2 (09:37→21:00)
[2017-08-12] MEDS: DOCUSATE SODIUM 50 MG/SENNA 8.6 MG TAB PO SCH ×2 (09:37→21:00)
[2017-08-12] MEDS: PANTOPRAZOLE SOD 40 MG DELAYED RELEASE TAB PO SCH (09:37)
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
[2017-08-12] MEDS ORDERED: DILT240C44 PO (12:54)
[2017-08-12] MEDS: ENOXAPARIN SODIUM 30 MG/0.3 ML SYRINGE SQ SCH (16:34)
[2017-08-13] VITALS (7 sets, daily range): BP systolic 106–159; BP diastolic 59–85; PULSE 62–79; RESP 18–20; TEMP 97.5–99; O2SAT 97–99
[2017-08-13] MEDS: SODIUM CHLORIDE 0.9% FLUSH 10 ML FLUSH IV FLUSH SCH ×3 (08:56→21:33)
[2017-08-13] MEDS: LISINOPRIL 20 MG TAB PO SCH (08:57)
[2017-08-13] MEDS: traMADol HCL 50 MG TAB PO PRN ×2 (08:57→21:34)
[2017-08-13] MEDS: PANTOPRAZOLE SOD 40 MG DELAYED RELEASE TAB PO SCH (08:57)
[2017-08-13] MEDS: ASPIRIN EC 81 MG TABEC PO SCH (08:57)
[2017-08-13] MEDS: DOCUSATE SODIUM 50 MG/SENNA 8.6 MG TAB PO SCH ×2 (08:57→21:33)
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
[2017-08-13] MEDS: ENOXAPARIN SODIUM 30 MG/0.3 ML SYRINGE SQ SCH (17:32)
[2017-08-14] VITALS (7 sets, daily range): BP systolic 98–176; BP diastolic 53–79; PULSE 69–84; RESP 16–20; TEMP 96.9–98.8; O2SAT 95–98
[2017-08-14] MEDS: traMADol HCL 50 MG TAB PO PRN (08:05)
[2017-08-14] MEDS: SODIUM CHLORIDE 0.9% FLUSH 10 ML FLUSH IV FLUSH SCH ×3 (09:00→21:00)
[2017-08-14] MEDS: LIDOCAINE HCL 5% PATCH T-DERMAL SCH (09:00)
[2017-08-14] MEDS: LISINOPRIL 20 MG TAB PO SCH (09:44)
[2017-08-14] MEDS: DOCUSATE SODIUM 50 MG/SENNA 8.6 MG TAB PO SCH ×2 (09:44→21:21)
[2017-08-14] MEDS: ASPIRIN EC 81 MG TABEC PO SCH (09:44)
[2017-08-14] MEDS: PANTOPRAZOLE SOD 40 MG DELAYED RELEASE TAB PO SCH (09:44)
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
[2017-08-14] MEDS: ENOXAPARIN SODIUM 30 MG/0.3 ML SYRINGE SQ SCH (16:26)
[2017-08-14] MEDS: REMOVE OLD LIDOCAINE PATCH T-DERMAL SCH (21:00)
[2017-08-15 04:47] VITALS: BP 139/65; PULSE 72; RESP 18; TEMP 98.2; O2SAT 97
[2017-08-15] MEDS: traMADol HCL 50 MG TAB PO PRN (05:18)
[2017-08-15 08:30] VITALS: BP 123/62; PULSE 63; RESP 20; TEMP 98.2; O2SAT 96
[2017-08-15] MEDS: SODIUM CHLORIDE 0.9% FLUSH 10 ML FLUSH IV FLUSH SCH ×2 (09:00→20:07)
[2017-08-15] MEDS: PANTOPRAZOLE SOD 40 MG DELAYED RELEASE TAB PO SCH (09:46)
[2017-08-15] MEDS: ASPIRIN EC 81 MG TABEC PO SCH (09:46)
[2017-08-15] MEDS: LISINOPRIL 20 MG TAB PO SCH (09:46)
[2017-08-15] MEDS: DOCUSATE SODIUM 50 MG/SENNA 8.6 MG TAB PO SCH ×2 (09:46→20:07)
[2017-08-15] MEDS: LIDOCAINE HCL 5% PATCH T-DERMAL SCH (09:47)
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
[2017-08-15 12:02] VITALS: BP 114/60; PULSE 75; RESP 20; TEMP 98.2; O2SAT 96
[2017-08-15] MEDS: ENOXAPARIN SODIUM 30 MG/0.3 ML SYRINGE SQ SCH (15:49)
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
[2017-08-15 16:28] VITALS: BP 120/62; PULSE 68; RESP 20; TEMP 97.9; O2SAT 96
[2017-08-15] MEDS: REMOVE OLD LIDOCAINE PATCH T-DERMAL SCH (20:08)
[2017-08-15 20:14] VITALS: BP 122/66; PULSE 71; RESP 16; TEMP 97.9; O2SAT 97
[2017-08-15 23:40] VITALS: BP 127/67; PULSE 69; RESP 16; TEMP 97.9; O2SAT 98
[2017-08-16 03:08] VITALS: BP 120/59; PULSE 63; RESP 16; TEMP 97.7; O2SAT 97
[2017-08-16] MEDS: ASPIRIN EC 81 MG TABEC PO SCH (07:48)
[2017-08-16] MEDS: PANTOPRAZOLE SOD 40 MG DELAYED RELEASE TAB PO SCH (07:48)
[2017-08-16] MEDS: LISINOPRIL 20 MG TAB PO SCH (07:48)
[2017-08-16] MEDS: DOCUSATE SODIUM 50 MG/SENNA 8.6 MG TAB PO SCH ×2 (07:48→20:35)
[2017-08-16] MEDS: LIDOCAINE HCL 5% PATCH T-DERMAL SCH (07:49)
[2017-08-16] MEDS: SODIUM CHLORIDE 0.9% FLUSH 10 ML FLUSH IV FLUSH SCH ×2 (07:50→20:35)
[2017-08-16 08:00] VITALS: BP 141/70; PULSE 68; RESP 20; TEMP 96.8; O2SAT 95
--- NOTE | 2017-08-16 08:56 | HHI.PR ---
Subjective Remarks Follow up on patient with UTI, HTN. Patient seen and examined. Patient complaining of increased back pain today. She denies any lower extremity numbness, tingling or weakness. She denies any fever chills. Denies any chest pain or shortness of breath. Denies any nausea, vomiting or abdominal pain. Objective Vitals Vital Signs Date Time Temp Pulse Resp B/P (MAP) Pulse Ox O2 Delivery O2 Flow Rate FiO2 08/16/17 03:08 97.7 63 16 120/59 (79) 97 08/15/17 23:40 97.9 69 16 127/67 (87) 98 08/15/17 20:14 97.9 71 16 122/66 (84) 97 08/15/17 16:28 97.9 68 20 120/62 (81) 96 08/15/17 12:02 98.2 75 20 114/60 (78) 96 Imaging Last Impressions Head CT 08/08/17 0000 Signed Impressions: CONCLUSION: 1. Negative noncontrast head CT. Objective Remarks GENERAL: Well-nourished, well-developed pleasant elderly female patient in [facility]. Awake and alert. Lying in hospital bed. SKIN: Warm and dry. No rash. HEENT: Normocephalic. Atraumatic. EOMI. No sclera icterus. No nasal drainage. Mucous membranes pink and moist. CARDIOVASCULAR: Regular rate and rhythm. 2/6 systolic murmur noted, heard best at RUSB RESPIRATORY: Nonlabored. Clear to auscultation. Breath sounds equal bilaterally. GASTROINTESTINAL: Abdomen soft, non-tender, nondistended. Normoactive bowel sounds x4. MUSCULOSKELETAL: No obvious deformities. Extremities without clubbing, cyanosis , or edema. +tenderness to palpation lower lumbar spine. N/V intact distally. NEUROLOGICAL: Awake and alert. No obvious cranial nerve deficits. Motor grossly within normal limits. Moving all extremities spontaneously. Nonfocal. Normal speech. PSYCHIATRIC: Appropriate mood and affect; insight and judgment normal. Procedures None A/P Problem List: (1) Hypertensive urgency ICD Code: I16.0 - Hypertensive urgency (2) Chest pain ICD Code: R07.9 - Chest pain, unspecified (3) UTI (urinary tract infection) ICD Code: N39.0 - Urinary tract infection, site not specified Status: Acute Assessment and Plan 81-year-old female with history of CAD s/p stent, HTN, GERD, overactive bladder , initially presented to the ED under Bajwa act due the patient reportedly making violent gestures towards family members. Patient was seen by psychiatry in the ED, Bajwa act lifted, the patient was diagnosed with a UTI, and she was cleared for discharge however the family refuses to take the patient back home. She was admitted to observation with hypertensive urgency and UTI. Hypertensive urgency: BP 201/93 in the ED BP much improved, now adequately controlled -Continue patient's home lisinopril 40 mg daily -Clonidine prn, IV Vasotec prn -Monitor BP, adjust antihypertensives as needed Chest Pain with hx of CAD w/stent: patient reports multiple intermittent episodes of chest pain going on for many months now, relieved with nitroglycerin at home, however patient also reports chronic severe acid reflux. Patient denies any active chest pain ACS ruled out with negative serial cardiac enzymes and EKG without acute ischemic changes Lipid panel within normal limits -No further complaints of chest pain since admission. Telemetry discontinued. -Continue aspirin daily -Nitro prn, IV morphine prn UTI: UA with large leuks, WBCs, bacteria. Afebrile, no leukocytosis. -Given treatment with Keflex 500mg po bid -Urine culture with mixed gram positive susan, likely contaminants, antibiotics discontinued GERD: Chronic -continue patient's Protonix Deconditioned Unsteady gait Acute on chronic back pain, improved -Participating with PT, cleared for discharge with no PT needs recommended -continue Lidoderm patch alternating with K thermia application -Ultram as needed for pain DVT Prophylaxis: lovenox sq Discharge Planning Difficult placement. Active DCF case. CM assisting with ongoing discharge planning. DCF to contact [facility] for possible placement. [phone] signed. Problem Qualifiers (1) UTI (urinary tract infection): Qualified Codes: N30.00 - Acute cystitis without hematuria Vicky Moore Aug 16, 2017 08:56
[2017-08-16] MEDS: ENOXAPARIN SODIUM 30 MG/0.3 ML SYRINGE SQ SCH (15:50)
[2017-08-16 19:48] VITALS: BP 116/64; PULSE 81; RESP 16; TEMP 97.3; O2SAT 98
[2017-08-16] MEDS: REMOVE OLD LIDOCAINE PATCH T-DERMAL SCH (20:35)
[2017-08-16] MEDS: traMADol HCL 50 MG TAB PO PRN (21:18)
[2017-08-17 00:11] VITALS: BP 150/69; PULSE 77; RESP 17; TEMP 98.4; O2SAT 98
[2017-08-17 03:51] VITALS: BP 129/59; PULSE 70; RESP 16; TEMP 98; O2SAT 97
[2017-08-17] MEDS: traMADol HCL 50 MG TAB PO PRN (06:17)
[2017-08-17 08:00] VITALS: BP 129/63; PULSE 65; RESP 20; TEMP 96.4; O2SAT 96
[2017-08-17] MEDS: SODIUM CHLORIDE 0.9% FLUSH 10 ML FLUSH IV FLUSH SCH (08:44)
[2017-08-17] MEDS: LISINOPRIL 20 MG TAB PO SCH (08:46)
[2017-08-17] MEDS: ASPIRIN EC 81 MG TABEC PO SCH (08:46)
[2017-08-17] MEDS: DOCUSATE SODIUM 50 MG/SENNA 8.6 MG TAB PO SCH (08:46)
[2017-08-17] MEDS: PANTOPRAZOLE SOD 40 MG DELAYED RELEASE TAB PO SCH (08:46)
[2017-08-17] MEDS: LIDOCAINE HCL 5% PATCH T-DERMAL SCH (08:47)
--- NOTE | 2017-08-17 09:31 | HHI.PR ---
Subjective Remarks Follow up on patient with UTI, HTN. Patient seen and examined. Patient denies any new medical complaints today. She reports her back pain is better today. She reports improvement with use of the Lidoderm patch. She denies any fever or chills. She denies any chest pain or shortness of breath. She denies any nausea, vomiting or abdominal pain. She is afebrile. VSS. Objective Vitals Vital Signs Date Time Temp Pulse Resp B/P (MAP) Pulse Ox O2 Delivery O2 Flow Rate FiO2 08/17/17 03:51 98.0 70 16 129/59 (82) 97 08/17/17 00:11 98.4 77 17 150/69 (96) 98 08/16/17 22:40 18 08/16/17 19:48 97.3 81 16 116/64 (81) 98 I/O 08/16/17 08/16/17 08/16/17 08/17/17 08/17/17 08/17/17 07:00 15:00 23:00 07:00 15:00 23:00 Intake Total 360 ml 100 ml Balance 360 ml 100 ml Intake Oral 360 ml 100 ml # Voids 1 Imaging Last Impressions Head CT 08/08/17 0000 Signed Impressions: CONCLUSION: 1. Negative noncontrast head CT. Objective Remarks GENERAL: Well-nourished, well-developed pleasant elderly female patient in [facility]. Awake and alert. Sitting on side of bed eating breakfast. SKIN: Warm and dry. No rash. HEENT: Normocephalic. Atraumatic. EOMI. No sclera icterus. No nasal drainage. Mucous membranes pink and moist. CARDIOVASCULAR: Regular rate and rhythm. 2/6 systolic murmur noted, heard best at RUSB RESPIRATORY: Nonlabored. Clear to auscultation. Breath sounds equal bilaterally. GASTROINTESTINAL: Abdomen soft, non-tender, nondistended. Normoactive bowel sounds x4. MUSCULOSKELETAL: No obvious deformities. Extremities without clubbing, cyanosis , or edema. +tenderness to palpation lower lumbar spine. N/V intact distally. NEUROLOGICAL: Awake and alert. No obvious cranial nerve deficits. Motor grossly within normal limits. Moving all extremities spontaneously. Nonfocal. Normal speech. PSYCHIATRIC: Appropriate mood and affect; insight and judgment normal. Procedures None A/P Problem List: (1) Hypertensive urgency ICD Code: I16.0 - Hypertensive urgency (2) Chest pain ICD Code: R07.9 - Chest pain, unspecified (3) UTI (urinary tract infection) ICD Code: N39.0 - Urinary tract infection, site not specified Status: Acute Assessment and Plan 81-year-old female with history of CAD s/p stent, HTN, GERD, overactive bladder , initially presented to the ED under Bajwa act due the patient reportedly making violent gestures towards family members. Patient was seen by psychiatry in the ED, Bajwa act lifted, the patient was diagnosed with a UTI, and she was cleared for discharge however the family refuses to take the patient back home. She was admitted to observation with hypertensive urgency and UTI. Hypertensive urgency: BP 201/93 in the ED BP much improved, now adequately controlled -Continue patient's home lisinopril 40 mg daily -Clonidine prn, IV Vasotec prn -Monitor BP, adjust antihypertensives as needed Chest Pain with hx of CAD w/stent: patient reports multiple intermittent episodes of chest pain going on for many months now, relieved with nitroglycerin at home, however patient also reports chronic severe acid reflux. Patient denies any active chest pain ACS ruled out with negative serial cardiac enzymes and EKG without acute ischemic changes Lipid panel within normal limits -No further complaints of chest pain since admission. Telemetry discontinued. -Continue aspirin daily -Nitro prn, IV morphine prn GERD: Chronic -continue patient's Protonix Deconditioned Unsteady gait Acute on chronic back pain, improved -Participating with PT, cleared for discharge with no PT needs recommended -continue Lidoderm patch alternating with K thermia application -Ultram as needed for pain DVT Prophylaxis: lovenox sq Discharge Planning Difficult placement. Active DCF case. CM assisting with ongoing discharge planning. DCF to contact [facility] for possible placement. [phone] signed. Problem Qualifiers (1) UTI (urinary tract infection): Qualified Codes: N30.00 - Acute cystitis without hematuria Vicky Moore Aug 17, 2017 09:31
[2017-08-17 12:00] VITALS: BP 96/53; PULSE 67; RESP 20; TEMP 95.7; O2SAT 96
[2017-08-17] MEDS: ENOXAPARIN SODIUM 30 MG/0.3 ML SYRINGE SQ SCH (15:23)
[2017-08-17 16:00] VITALS: BP 128/56; PULSE 62; RESP 20; TEMP 95.7; O2SAT 99
== END 2017-08-17 20:43 | disposition home or self-care (01) ==
LOC: NEPD 16:30 → NEDA 08-09 14:14 → NEPHCDU 08-09 19:28
PROVIDERS: ADMIT Internal Medicine; ATTEND Internal Medicine
DX: I16.0 Hypertensive urgency (principal); R07.89 Other chest pain; N30.00 Acute cystitis without hematuria; R45.6 Violent behavior; E87.6 Hypokalemia; F43.24 Adjustment disorder with disturbance of conduct; R51 Headache; I25.10 Atherosclerotic heart disease of native coronary artery without angina pectoris; I10 Essential (primary) hypertension; K21.9 Gastro-esophageal reflux disease without esophagitis; N32.81 Overactive bladder; G89.29 Other chronic pain; Z79.899 Other long term (current) drug therapy; Z95.5 Presence of coronary angioplasty implant and graft; Z79.82 Long term (current) use of aspirin
CPT/HCPCS: 70450; 80048; 80053; 80061; 80307; 81001; 82550; 83735; 84443; 84484; 85025; 87086; 93005; 96365; 96372; 97110; 97163; 97530; 99285; G0378; G8987; G8988; J0696; J1650